=== PATIENT | male | born 1975 | race Caucasian/White ===

== ENCOUNTER 2018-12-06 13:59 | Emergency (ER) | payer OTHER ==
[~2018-12-06] VITALS: Ht 185.4 cm; Wt 102.1 kg
[2018-12-06 14:00] VITALS: BP 127/75
--- NOTE | 2018-12-06 14:31 | RAD ---
Examination: ANKLE RIGHT 3V History: Twisted right ankle 12/05/18, pain Comparison/Correlation: None Findings: Total 3 images the right ankle were obtained. Ankle joint mortise is adequate. Moderate-sized calcaneal spur is present. No fracture or bony destruction. Soft tissues are unremarkable. Impression: Moderate-sized calcaneal spur. Electronically signed by: Arcenio Khan MD (12/06/2018 2:28 PM) [facility]
--- NOTE | 2018-12-06 14:36 | PHYS DOC ---
Adult General Chief Complaint Chief Complaint: ANKLE PROBLEM HPI HPI 43-year-old male presents with right ankle pain. Patient states that he stepped in a gopher hole and hyperflexed his foot. He has pain over the superior aspect of the ankle. There is no ecchymosis or swelling. The patient is able to walk on it. He denies any other injuries or complaints. Review of Systems Review of Systems Constitutional: Denies fever or chills [] Eyes: Denies change in visual acuity, redness, or eye pain [] HENT: Denies nasal congestion or sore throat [] Respiratory: Denies cough or shortness of breath [] Cardiovascular: No additional information not addressed in HPI [] GI: Denies abdominal pain, nausea, vomiting, bloody stools or diarrhea [] : Denies dysuria or hematuria [] Musculoskeletal: Ankle pain[] Integument: Denies rash or skin lesions [] Neurologic: Denies headache, focal weakness or sensory changes [] Endocrine: Denies polyuria or polydipsia [] All other systems were reviewed and found to be within normal limits, except as documented in this note. Allergies Allergies Allergies Coded Allergies Type Severity Reaction Last Updated Verified No Known Drug Allergies 12/06/18 No Physical Exam Physical Exam Constitutional: Well developed, well nourished, no acute distress, non-toxic appearance. [] HENT: Normocephalic, atraumatic, bilateral external ears normal, oropharynx moist, no oral exudates, nose normal. [] Eyes: PERRLA, EOMI, conjunctiva normal, no discharge. [] Neck: Normal range of motion, no tenderness, supple, no stridor. [] Cardiovascular:Heart rate regular rhythm, no murmur [] Lungs & Thorax: Bilateral breath sounds clear to auscultation [] Abdomen: Bowel sounds normal, soft, no tenderness, no masses, no pulsatile masses. [] Skin: Warm, dry, no erythema, no rash. [] Back: No tenderness, no CVA tenderness. [] Extremities: Tenderness over the superior right foot, no ecchymosis, no deformity. Ligaments intact[] Neurologic: Alert and oriented X 3, normal motor function, normal sensory function, no focal deficits noted. [] Psychologic: Affect normal, judgement normal, mood normal. [] EKG EKG [] Radiology/Procedures Radiology/Procedures [] Impressions: Examination: ANKLE RIGHT 3V History: Twisted right ankle 12/05/18, pain Comparison/Correlation: None Findings: Total 3 images the right ankle were obtained. Ankle joint mortise is adequate. Moderate-sized calcaneal spur is present. No fracture or bony destruction. Soft tissues are unremarkable. Impression: Moderate-sized calcaneal spur. Electronically signed by: Hamzah La MD (12/06/2018 2:28 PM) [facility] DICTATED AND SIGNED BY: HAMZAH LA MD DATE: 12/06/18 1428 CC: CELESTINO BLAND DO; PCP,ANGIE Course & Med Decision Making Course & Med Decision Making Pertinent Labs and Imaging studies reviewed. (See chart for details) [] Dragon Disclaimer Dragon Disclaimer This electronic medical record was generated, in whole or in part, using a voice recognition dictation system. Departure Departure: Impression: Primary Impression: Right foot sprain Disposition: HOME, SELF-CARE Condition: STABLE Referrals: PCPANGIE (PCP) Patient Instructions: Foot Sprain-Brief Problem Qualifiers Primary Impression: Right foot sprain Encounter type: initial encounter Qualified Codes: S93.601A - Unspecified sprain of right foot, initial encounter CELESTINO BLAND DO Dec 06, 2018 14:36
== END 2018-12-06 14:52 | disposition home or self-care (01) ==
LOC: ER 13:59
DX: S93.601A Unspecified sprain of right foot, initial encounter (principal); X50.9XXA Other and unspecified overexertion or strenuous movements or postures, initial encounter; Y93.89 Activity, other specified; Y92.89 Other specified places as the place of occurrence of the external cause; Y99.8 Other external cause status
CPT/HCPCS: 73610; 99283

== ENCOUNTER 2019-05-15 14:20 | Emergency (ER) | payer MEDICAID, OTHER ==
[~2019-05-15] VITALS: Ht 185.4 cm; Wt 98.9 kg
[2019-05-15 14:30] VITALS: BP 133/77
--- NOTE | 2019-05-15 15:41 | ED.ADGEN ---
Past History Past Medical History: Asthma, Other Additional Past Medical Histor: LOWER BCK PROBLEMS Past Surgical History: No Surgical History Additional Smoking Information: PACK/DAY Alcohol Use: None Drug Use: None Adult General Chief Complaint Chief Complaint Multiple medical complaints [facility] Patient is a 44-year-old male with history of hayfever presents with nasal congestion, rhinorrhea, sore throat, watery eyes and sneezing. Symptom onset 3 days ago. Patient also reports right wrist pain from injury 3 weeks ago, which he states is improving. He also reports loose stools. No abdominal pain. No fever chills, nausea vomiting or sweats. No chest pain, shortness of breath. Patient was evaluated and outside ED yesterday and instructed to follow-up with his primary care provider. patient has not taken any home medications. . Patient states he is currently out of work and does not have funds to purchase medications at this time.[] Review of Systems Review of Systems Constitutional: Denies fever or chills [] Eyes: Denies change in visual acuity, redness, or eye pain [] HENT: Denies nasal congestion or sore throat [] Respiratory: Denies cough or shortness of breath [] Cardiovascular: No additional information not addressed in HPI [] GI: Denies abdominal pain, nausea, vomiting, bloody stools or diarrhea [] : Denies dysuria or hematuria [] Musculoskeletal: Denies back pain or joint pain [] Integument: Denies rash or skin lesions [] Neurologic: Denies headache, focal weakness or sensory changes [] Endocrine: Denies polyuria or polydipsia [] All other systems were reviewed and found to be within normal limits, except as documented in this note. Allergies Allergies Allergies Coded Allergies Type Severity Reaction Last Updated Verified No Known Drug Allergies 12/06/18 No Physical Exam Physical Exam Constitutional: Well developed, well nourished, no acute distress, non-toxic appearance. [] HENT: Normocephalic, atraumatic, bilateral external ears normal, oropharynx moist, no oral exudates, nose, congestion with clear rhinorrheal. [] Eyes: PERRLA, EOMI, conjunctiva normal, no discharge. [] Neck: Normal range of motion, no tenderness, supple, no stridor. [] Cardiovascular:Heart rate regular rhythm, no murmur [] Lungs & Thorax: Bilateral breath sounds clear to auscultation [] Extremities: No tenderness, no cyanosis, no clubbing, ROM intact, no edema. [] Neurologic: Alert and oriented X 3, normal motor function, normal sensory function, no focal deficits noted. [] Psychologic: Affect normal, judgement normal, mood normal. [] Current Patient Data Vital Signs Vital Signs Date Time Temp Pulse Resp B/P (MAP) Pulse Ox O2 Delivery O2 Flow Rate FiO2 05/15/19 14:30 98.1 77 20 97 Room Air EKG EKG [] Radiology/Procedures Radiology/Procedures [] Course & Med Decision Making Course & Med Decision Making Pertinent Labs and Imaging studies reviewed. (See chart for details) [Hayfever] Final Impression Final Impression [Hayfever] Dragon Disclaimer Dragon Disclaimer This electronic medical record was generated, in whole or in part, using a voice recognition dictation system. CELESTINO MOORE DO May 15, 2019 15:41
[2019-05-15] MEDS ORDERED: FLUT9.9S NS (15:43)
[2019-05-15] MEDS ORDERED: FEXO180T81 PO (15:43)
== END 2019-05-15 15:51 | disposition home or self-care (01) ==
LOC: ER 14:20
DX: J45.909 Unspecified asthma, uncomplicated (principal); M25.531 Pain in right wrist; F17.200 Nicotine dependence, unspecified, uncomplicated; R19.7 Diarrhea, unspecified
CPT/HCPCS: 99283

== ENCOUNTER 2019-06-04 17:28 | Emergency (ER) | payer MEDICAID ==
[~2019-06-04] VITALS: Ht 185.4 cm; Wt 101.2 kg
[~2019-06-04 17:28] MED LIST: FEXO180T81 PO; FLUT9.9S NS
[2019-06-04 17:41] VITALS: BP 128/65
--- NOTE | 2019-06-04 19:08 | RAD ---
Three-view right foot dated 06/04/2019. No comparison available. Clinical data indication: Pain after injury. FINDINGS: 3 views the right foot show normal bony alignment. No displaced fracture. There is diffuse soft tissue swelling. No acute osseous or articular abnormality. Prominent plantar spur. IMPRESSION: Soft tissue swelling with no evidence of underlying displaced fracture. Electronically signed by: Tyler Coates MD (06/04/2019 7:05 PM) [facility]
--- NOTE | 2019-06-04 21:17 | PHYS DOC ---
Past History Past Medical History: Asthma, Other Additional Past Medical Histor: LOWER BCK PROBLEMS Past Surgical History: Other Additional Past Surgical Histo: groin hernia repair x 2; broken jaw repair; I&D groin Alcohol Use: None Drug Use: None Adult General Chief Complaint Chief Complaint: FOOT INJURY PAIN [facility] HPI Patient is a 44 yo m who stepped on brown recluse (had slippers on no break in skin) he hit his foot multiploe times on the ground to kill the spider. then woke up today heel was sore no fever worried about a bone bruise Review of Systems Review of Systems Constitutional: Denies fever or chills [] Eyes: Denies change in visual acuity, redness, or eye pain [] Cardiovascular: No additional information not addressed in HPI [] GI: Denies abdominal pain, nausea, vomiting, bloody stools or diarrhea [] : Denies dysuria or hematuria [] All other systems were reviewed and found to be within normal limits, except as documented in this note. Allergies Allergies Allergies Coded Allergies Type Severity Reaction Last Updated Verified No Known Drug Allergies 06/04/19 No Physical Exam Physical Exam Constitutional: Well developed, well nourished, no acute distress, non-toxic appearance. [] HENT: Normocephalic, atraumatic, bilateral external ears normal, oropharynx moist, no oral exudates, nose normal. [] Eyes: PERRLA, EOMI, conjunctiva normal, no discharge. [] Neck: Normal range of motion, no tenderness, supple, no stridor. [] Pulmonary: Normal respiratory effort no increased work of breathing no obvious chest wall trauma Abdomen: Bowel sounds normal, soft, no tenderness, no masses, no pulsatile masses. [] Skin: Warm, dry, no erythema, no rash. [] Extremities: ttp noted to the affected heel, no swelling erythema or induration no signs of bite Neurologic: Alert and oriented X 3, normal motor function, normal sensory function, no focal deficits noted. [] Psychologic: Affect normal, judgement normal, mood normal. [] Current Patient Data Vital Signs Vital Signs Date Time Temp Pulse Resp B/P (MAP) Pulse Ox O2 Delivery O2 Flow Rate FiO2 06/04/19 17:41 98.4 93 18 95 Room Air EKG EKG [] Radiology/Procedures Radiology/Procedures [] Impressions: FINDINGS: 3 views the right foot show normal bony alignment. No displaced fracture. There is diffuse soft tissue swelling. No acute osseous or articular abnormality. Prominent plantar spur. IMPRESSION: Soft tissue swelling with no evidence of underlying displaced fracture. Electronically signed by: Keo Coates MD (06/04/2019 7:05 PM) [facility] DICTATED AND SIGNED BY: KEO COATES MD DATE: 06/04/191904 CC: NEY MORRISON MD; PCP,NO ~ Course & Med Decision Making Course & Med Decision Making Pertinent Labs and Imaging studies reviewed. (See chart for details) []note bone spur clinical exam no evidence of cellulitis or broken skin no fb seen. Dragon Disclaimer Dragon Disclaimer This electronic medical record was generated, in whole or in part, using a voice recognition dictation system. Departure Departure: Impression: Primary Impression: Heel spur Disposition: 01 HOME, SELF-CARE Condition: STABLE Patient Instructions: Heel NEY Sharma MD Jun 04, 2019 21:17
== END 2019-06-04 19:03 | disposition home or self-care (01) ==
LOC: ER 17:28
DX: M77.31 Calcaneal spur, right foot (principal); J45.909 Unspecified asthma, uncomplicated
CPT/HCPCS: 73630; 99284